=== PATIENT | male | born 1985 | race Caucasian/White ===

== ENCOUNTER 2023-01-22 20:22 | Emergency (ER) | payer BC ==
[~2023-01-22] VITALS: Ht 160 cm; Wt 95.3 kg
--- NOTE | 2023-01-22 20:30 | NUR ---
ARRIVAL PT ARRIVED TO ED ROOM 5 AMBULATORY C/O PAIN TO RIGHT KNEE X 1 DAY, STATES HE HEARD A POP WHILE WALKING PAIN PROGRESSIVLY WORSE TODAYTO LATERAL KNEE. MONITORS APPLIED, DR. BARAJAS NOTIFIED.
[2023-01-22] MEDS ORDERED: TORADOL IM STA (20:43)
[2023-01-22 20:46] VITALS: BP 164/88; PULSE 85; RESP 18; TEMP 98.1; O2SAT 98
[2023-01-22] MEDS ORDERED: TORADOL ONE (20:52)
[2023-01-22 21:17] VITALS: BP 143/93; PULSE 92; RESP 18; TEMP 98.1; O2SAT 98
--- NOTE | 2023-01-22 21:18 | DIREP ---
PROCEDURE:XRAY KNEE 2 VWS-RT COMPARISON:[facility], CR, XRAY KNEE 3 VIEWS-RT, 07/25/2016, 04:04 AM. INDICATIONS:Injury FINDINGS: No acute fracture or dislocation. Mild marginal osteophyte formation with joint space narrowing of the medial compartment. Small joint effusion. CONCLUSION: 1. No acute osseous abnormality. 2. Mild degenerative change and small joint effusion. 3. Recommend further evaluation with outpatient MRI if there is concern for internal derangement. Dictated by: Abhijit Gurrola DO on 01/22/2023 at 09:15 PM
--- NOTE | 2023-01-22 21:34 | ER.PDOC ---
General Chief Complaint: Requesting Medical Care Stated Complaint: KNEE PAIN Time seen by MD: 21:32 Source: patient Exam Limitations: no limitations History of Present Illness Initial Comments Right knee pain after twisting it 3 days ago. Pain is worse with movement. Where: home Context: twist Severity: moderate Past Medical History Medical History: no pertinent history Surgical History: appendectomy, cholecystectomy, knee Family History Significant Family History: no pertinent family hx Social History Smoking: non-smoker Alcohol Use: none Drug Use: none Review of Systems Constitutional: no symptoms reported EENTM: no symptoms reported Respiratory: no symptoms reported Cardiovascular: no symptoms reported Gastrointestinal: no symptoms reported Musculoskeletal: see HPI All Other Systems: Reviewed and Negative Physical Exam General Appearance: Alert, No Apparent Distress Foot: nml inspection, non-tender, nml color/temp, skin intact Ankle: nml inspection, non-tender, nml ROM, no joint swelling, skin intact Knee: tenderness (Right knee without swelling or deformity) Thigh/Hip: nml inspection Gait: normal Neuro/Vasc/Tendon: sensation nml, motor nml, no vascular compromise, tendon fun ction nml Skin: warm/dry Head/ENT: nml inspection, pharynx nml Neck/Back: nml inspection, non-tender Abdomen: non-tender, pelvis stable Results/Orders Results/Orders Orders - MIRA BARAJAS MD Xr Knee Rt 2v (01/22/23 20:43) Ketorolac Tromethamine (Toradol) (01/22/23 20:43) Ketorolac Tromethamine (Toradol) (01/22/23 20:52) Vital Signs Date Time Temp Pulse Resp B/P (MAP) Pulse Ox O2 Delivery O2 Flow Rate FiO2 01/22/23 21:17 98.1 92 18 143/93 (110) 98 Room Air* 0 21 01/22/23 20:46 98.1 85 18 01/22/23 20:46 98.1 85 18 98 01/22/23 20:46 98.1 85 18 164/88 (113) 98 Room Air* 0 21 Administered Medications Medications (Trade) Dose Ordered Sig/Demetri Route PRN Reason Start Time Stop Time Status Last Admin Dose Admin Ketorolac Tromethamine (Toradol) 60 mg STAT STAT IM 01/22/23 20:43 01/22/23 20:45 DC 01/22/23 20:51 60 MG Progress Progress X ray of right knee show no acute abnormality. I discussed findings with patient who voices understanding. ER DEPART Departure Time of Disposition: 21:33 Disposition: 01 HOME / SELF CARE / HOMELESS Impression: Primary Impression: Right knee injury Condition: Improved Referrals: ALEJANDRO MELISSA PA-C (PCP) PRIMARY CARE PROVIDER Additional Instructions: Continue with your knee brace Ibuprofen Follow-up with your PCP 1 week Return to ED if worsening or concerns Duration or Time Spent with Pa: 10 min Problem Qualifiers Primary Impression: Right knee injury Encounter type: initial encounter Qualified Codes: S89.91XA - Unspecified injury of right lower leg, initial encounter MIRA BARAJAS MD Jan 22, 2023 21:34
== END 2023-01-22 21:38 | disposition home or self-care (01) ==
LOC: ER 20:22
DX: S89.91XA Unspecified injury of right lower leg, initial encounter (principal); Z90.49 Acquired absence of other specified parts of digestive tract; X58.XXXA Exposure to other specified factors, initial encounter; Y93.89 Activity, other specified; Y92.89 Other specified places as the place of occurrence of the external cause; Y99.8 Other external cause status
CPT/HCPCS: 99284; 96372; 73560; J1885

== ENCOUNTER 2023-06-19 06:49 | Emergency (ER) | payer SELFPAY ==
[~2023-06-19] VITALS: Ht 160 cm; Wt 90.7 kg
[2023-06-19 07:06] VITALS: BP 136/84; PULSE 113; RESP 20; TEMP 97.9; O2SAT 93
[2023-06-19 07:55] LABS: BASOPHIL # 0.1 10^3/uL (0.0-0.1); BASOPHIL % 0.3 % (0.0-0.2); EOSINOPHIL # 0.4 10^3/uL (0.0-0.2); EOSINOPHIL % 2.4 % (0.0-5.0); HEMATOCRIT(ML) 46.3 % (37.0-53.0); HEMOGLOBIN 15.8 g/dL (13.9-16.3); IG % 0.6 % (0.00-0.50); LYMPHOCYTES # 3.32 10^3/uL1 (1.0-4.8); LYMPHOCYTES % 18.8 % (24.0-44.0); MEAN CORP HGB 32.1 pg (26-34); MEAN CORP HGB CONCENTRATION 34.1 g/dL (33-36.5); MEAN CORP VOLUME 94.1 fL (78-100); MONOCYTES # 0.8 10^3/uL (0.3-0.8); MONOCYTES % 4.5 % (5.0-12.0); NEUTROPHIL # 12.9 10^3/uL (1.8-7.7); NEUTROPHILS % 73.4 % (41.0-85.0); RED BLOOD CELL 4.92 10^6/uL (4.50-5.90); RED CELL DISTRIBUTION WIDTH 12.6 % (11.5-14.5); WHITE BLOOD CELL 17.6 10^3/uL (4.5-11.0)
[2023-06-19 07:56] LABS: BILIRUBIN,URINE NEGATIVE (NEGATIVE); LEUKOCYTE ESTERASE ,URINE NEGATIVE (NEGATIVE); NITRATE,URINE NEGATIVE (NEGATIVE); PH,URINE 6.5 (4.5-8.0)
[2023-06-19 08:09] VITALS: BP 112/81; PULSE 113; RESP 18; O2SAT 93
[2023-06-19 08:09] LABS: ALBUMIN/GLOBULIN RATIO 1.333; ANION GAP 13.5; BUN/CREATININE RATIO 9.14 (10.0-20.0); CALCIUM 9.1 mg/dL (8.4-10.5); CARBON DIOXIDE 29.5 mmol/L (20.0-32); CREATININE SERUM 1.64 mg/dL (0.59-1.40); EST GFR, NON-AA 46.8 (>/=60)
[2023-06-19 08:15] LABS: APPEARANCE,URINE CLEAR; UA COLOR YELLOW
[2023-06-19] MEDS ORDERED: NS 1000ML 1,000 ML IV STA (08:22)
[2023-06-19] MEDS ORDERED: NS 1000ML 1,000 ML ONE (08:27)
[2023-06-19] MEDS ORDERED: ROCEPHIN 1,000 MG in NS 100ML 100 ML IV STA (08:52)
[2023-06-19] MEDS ORDERED: ROCEPHIN ONE (08:54)
[2023-06-19] MEDS ORDERED: NS 50ML 50 ML IV ONE (08:54)
[2023-06-19 09:00] VITALS: BP 106/60; PULSE 90; RESP 18; O2SAT 96
== END 2023-06-19 09:38 | disposition home or self-care (01) ==
LOC: ER 06:49
DX: R10.9 Unspecified abdominal pain (principal); R11.2 Nausea with vomiting, unspecified; N17.9 Acute kidney failure, unspecified; N30.90 Cystitis, unspecified without hematuria; K76.0 Fatty (change of) liver, not elsewhere classified; E86.0 Dehydration; Z90.49 Acquired absence of other specified parts of digestive tract
CPT/HCPCS: 99285; 74176; 96365; 87086; 80053; 85025; 36415; 87040 ×2; 83605; 81001; 83690; J7030; J0696 ×2

== ENCOUNTER 2024-01-10 10:55 | Emergency (ER) | payer SELFPAY ==
[~2024-01-10] VITALS: Ht 160 cm; Wt 104.3 kg
[2024-01-10 11:08] VITALS: BP_SYST 143; BP_SYST 146; BP_DIAS 106; PULSE 95; RESP 18; TEMP 98.5; O2SAT 98
[2024-01-10] MEDS ORDERED: NS 1000ML 1,000 ML ONE (11:20)
[2024-01-10] MEDS: NS 1000ML 1,000 ML IV ONE (11:24)
[2024-01-10 11:32] LABS: BASOPHIL # 0.1 10^3/uL (0.0-0.1); BASOPHIL % 0.3 % (0.0-0.2); EOSINOPHIL # 0.4 10^3/uL (0.0-0.2); EOSINOPHIL % 2.2 % (0.0-5.0); HEMATOCRIT(ML) 37.6 % (37.0-53.0); HEMOGLOBIN 12.5 g/dL (13.9-16.3); LYMPHOCYTES # 2.85 10^3/uL1 (1.0-4.8); MEAN CORP HGB 31.3 pg (26-34); MEAN CORP HGB CONCENTRATION 33.2 g/dL (33-36.5); MONOCYTES # 1.1 10^3/uL (0.3-0.8); MONOCYTES % 6.1 % (5.0-12.0); NEUTROPHIL # 11.1 10^3/uL (1.8-7.7); NEUTROPHILS % 62.4 % (41.0-85.0); PLATELET COUNT 219 10^3/uL (150-400); RED CELL DISTRIBUTION WIDTH 12.2 % (11.5-14.5); WHITE BLOOD CELL 17.8 10^3/uL (4.5-11.0)
[2024-01-10 11:34] LABS: +ADD MANUAL DIFF(NO CHRG) YES
[2024-01-10 11:34] LABS: BILIRUBIN,URINE NEGATIVE (NEGATIVE); LEUKOCYTE ESTERASE ,URINE NEGATIVE (NEGATIVE); NITRATE,URINE NEGATIVE (NEGATIVE); UROBILINOGEN,URINE 0.2 E.U./dL (0.2)
[2024-01-10 11:36] LABS: APPEARANCE,URINE CLEAR; UA COLOR YELLOW
[2024-01-10 11:46] LABS: ALBUMIN(ML) 3.6 g/dL (3.4-5.0); ALBUMIN/GLOBULIN RATIO 1.285; ANION GAP 16.3; BUN/CREATININE RATIO 13.53 (10.0-20.0); CALCIUM 8.3 mg/dL (8.4-10.5); CARBON DIOXIDE 25.8 mmol/L (20.0-32); CREATININE SERUM 2.29 mg/dL (0.59-1.40); EST GFR, NON-AA 31.8 (>/=60); POTASSIUM 3.1 mmol/L (3.6-5.2); URIC ACID 13.2 mg/dL (3.5-7.2)
[2024-01-10 12:10] VITALS: BP 133/85; PULSE 84; RESP 18; O2SAT 96
[2024-01-10 13:33] LABS: BAND NEUTROPHILS 36 % (2-6); BASOPHIL 1 % (0-2); EOSINOPHIL 3 % (1-4); LYMPHOCYTE 16 % (25-36); MONOCYTE 3 % (3-9); MYELOCYTES 3 %; SEGMENTED NEUTROPHILS 34 % (31-76); TOTAL CELLS COUNTED 100 #CELLS
== END 2024-01-10 12:25 | disposition short-term general hospital (02) ==
LOC: ER 10:55
DX: N17.9 Acute kidney failure, unspecified (principal); N18.9 Chronic kidney disease, unspecified; D72.829 Elevated white blood cell count, unspecified; Z90.49 Acquired absence of other specified parts of digestive tract
CPT/HCPCS: 99291; 96360; 71045; 80053; 85025; 36415; 81001; 84550; 85651; 86140; 81003; J7030

== ENCOUNTER 2024-02-07 14:12 | Observation (INO) | payer OTHER ==
[~2024-02-07] VITALS: Ht 160 cm; Wt 104.8 kg
[2024-02-07 14:25] VITALS: BP 150/101; PULSE 91; RESP 18; TEMP 97.6; O2SAT 92
[2024-02-07] MEDS: NITROSTAT SL PRN (14:35)
[2024-02-07 14:39] LABS: BASOPHIL % 0.3 % (0.2-1.2); EOSINOPHIL # 0.5 10^3/uL (0.0-0.2); EOSINOPHIL % 3.8 % (0.0-5.0); HEMATOCRIT(ML) 40.2 % (37.0-53.0); HEMOGLOBIN 13.1 g/dL (13.9-16.3); LYMPHOCYTES # 2.61 10^3/uL1 (1.0-4.8); MEAN CORP HGB 31.1 pg (26-34); MEAN CORP HGB CONCENTRATION 32.6 g/dL (33-36.5); MEAN CORP VOLUME 95.5 fL (78-100); MONOCYTES # 0.8 10^3/uL (0.3-0.8); MONOCYTES % 6.1 % (5.0-12.0); NEUTROPHIL # 9.7 10^3/uL (1.8-7.7); NEUTROPHILS % 70.4 % (41.0-85.0); PLATELET COUNT 285 10^3/uL (150-400); RED BLOOD CELL 4.21 10^6/uL (4.50-5.90); RED CELL DISTRIBUTION WIDTH 13.1 % (11.5-14.5); WHITE BLOOD CELL 13.7 10^3/uL (4.5-11.0)
[2024-02-07 14:41] LABS: +ADD MANUAL DIFF(NO CHRG) NO
[2024-02-07 15:07] LABS: ALBUMIN(ML) 4.5 g/dL (3.4-5.0); ALBUMIN/GLOBULIN RATIO 1.5; ANION GAP 11.5; BUN/CREATININE RATIO 6.79 (10.0-20.0); CALCIUM 9.3 mg/dL (8.4-10.5); CARBON DIOXIDE 32.5 mmol/L (20.0-32); CREATININE SERUM 1.62 mg/dL (0.59-1.40); EST GFR, NON-AA 47.4 (>/=60)
[2024-02-07 15:13] VITALS: BP 138/84; PULSE 79; RESP 18; O2SAT 91
[2024-02-07 16:00] VITALS: BP_SYST 137; BP_SYST 140; BP_DIAS 88; BP_DIAS 91; PULSE 77; PULSE 89; RESP 18; TEMP 98; O2SAT 92; O2SAT 94
[2024-02-07] MEDS ORDERED: ZOFRAN IV PRN (16:30)
[2024-02-07] MEDS ORDERED: ULTRAM PO PRN (16:30)
[2024-02-07] MEDS ORDERED: MORPHINE SULFATE IV PRN (16:30)
[2024-02-07] MEDS ORDERED: OFIRMEV 1000 MG/100 ML IV PRN (16:30)
[2024-02-07] MEDS ORDERED: APRESOLINE IV PRN (16:30)
[2024-02-07] MEDS ORDERED: LOVENOX SQ ONE (16:55)
[2024-02-07] MEDS ORDERED: NS 1000ML 1,000 ML ONE (16:55)
[2024-02-07] MEDS: NS 1000ML 1,000 ML IV SCH (16:56)
[2024-02-07] MEDS: LOVENOX SQ SCH (16:57)
[2024-02-07 20:00] VITALS: BP 139/77; PULSE 89; RESP 18; TEMP 97.1; O2SAT 90
[2024-02-07] MEDS ORDERED: KLOR-CON 10 PO ONE (21:08)
[2024-02-07] MEDS: NS 1000ML/KCL 20MEQ 1,000 ML IV SCH (21:10)
[2024-02-07] MEDS: KLOR-CON 10 PO ONE (21:10)
[2024-02-08] VITALS: BP 125/80; PULSE 71; RESP 18; TEMP 97.9; O2SAT 90
[2024-02-08 04:00] VITALS: BP 122/78; PULSE 82; RESP 20; TEMP 98.1; O2SAT 97
[2024-02-08 05:48] LABS: BASOPHIL # 0.1 10^3/uL (0.0-0.1); BASOPHIL % 0.5 % (0.2-1.2); EOSINOPHIL # 0.4 10^3/uL (0.0-0.2); EOSINOPHIL % 3.8 % (0.0-5.0); HEMATOCRIT(ML) 36.1 % (37.0-53.0); HEMOGLOBIN 11.6 g/dL (13.9-16.3); LYMPHOCYTES # 2.29 10^3/uL1 (1.0-4.8); LYMPHOCYTES % 21.4 % (24.0-44.0); MEAN CORP HGB 31.4 pg (26-34); MEAN CORP HGB CONCENTRATION 32.1 g/dL (33-36.5); MEAN CORP VOLUME 97.6 fL (78-100); MONOCYTES # 0.6 10^3/uL (0.3-0.8); MONOCYTES % 5.6 % (5.0-12.0); NEUTROPHIL # 7.3 10^3/uL (1.8-7.7); NEUTROPHILS % 68.1 % (41.0-85.0); PLATELET COUNT 244 10^3/uL (150-400); RED CELL DISTRIBUTION WIDTH 13.2 % (11.5-14.5); WHITE BLOOD CELL 10.7 10^3/uL (4.5-11.0)
[2024-02-08 05:49] LABS: +ADD MANUAL DIFF(NO CHRG) NO
[2024-02-08 06:05] LABS: ALBUMIN(ML) 3.7 g/dL (3.4-5.0); ALBUMIN/GLOBULIN RATIO 1.37; ANION GAP 12.6; BUN/CREATININE RATIO 7.14 (10.0-20.0); CALCIUM 8.6 mg/dL (8.4-10.5); CREATININE SERUM 1.54 mg/dL (0.59-1.40); EST GFR, NON-AA 50.3 (>/=60); POTASSIUM 3.6 mmol/L (3.6-5.2)
[2024-02-08 07:34] VITALS: BP 129/91; PULSE 79; RESP 18; TEMP 97.7; O2SAT 93
[2024-02-08] MEDS: COZAAR PO SCH (08:28)
[2024-02-08] MEDS: PROTONIX IV IV SCH (08:28)
[2024-02-08] MEDS: NITROSTAT SL PRN (08:53)
[2024-02-08] MEDS: HEPARIN SQ SCH (09:00)
[2024-02-08 10:58] VITALS: BP 129/91; PULSE 79; RESP 18; TEMP 97.7; O2SAT 93
== END 2024-02-08 10:58 | disposition home or self-care (01) ==
LOC: ER 14:12 → MS 15:22
PROVIDERS: ADMIT Student in an Organized Health Care Education/Training Program; ATTEND Student in an Organized Health Care Education/Training Program
DX: R07.89 Other chest pain (principal); I16.0 Hypertensive urgency; I12.9 Hypertensive chronic kidney disease with stage 1 through stage 4 chronic kidney disease, or unspecified chronic kidney disease; N18.31 Chronic kidney disease, stage 3a; N17.9 Acute kidney failure, unspecified; I45.10 Unspecified right bundle-branch block; E03.9 Hypothyroidism, unspecified; E86.0 Dehydration; K76.0 Fatty (change of) liver, not elsewhere classified; Z90.49 Acquired absence of other specified parts of digestive tract; Z79.899 Other long term (current) drug therapy
CPT/HCPCS: 96372; 96365; 96366 ×2; 96361; 99285; 71045; 80053 ×2; 85025 ×2; 36415 ×2; 85379; 84484 ×3; 82553; 83880; 82550 ×2; 93005; 96375; 83735; G0378 ×20; J7030; J3490 ×2; J1650; J2470; 80307; C9113

== ENCOUNTER 2024-05-07 20:00 | Observation (INO) | payer OTHER ==
[~2024-05-07] VITALS: Ht 160 cm; Wt 104.3 kg
[2024-05-07] MEDS ORDERED: ASPIRIN ONE (20:06)
[2024-05-07] MEDS: ASPIRIN PO STA (20:08)
[2024-05-07 20:12] LABS: BASOPHIL # 0.1 10^3/uL (0.0-0.1); BASOPHIL % 0.7 % (0.2-1.2); EOSINOPHIL % 8.3 % (0.0-5.0); HEMATOCRIT(ML) 42.7 % (37.0-53.0); HEMOGLOBIN 14.2 g/dL (13.9-16.3); LYMPHOCYTES # 2.69 10^3/uL1 (1.0-4.8); LYMPHOCYTES % 21.9 % (24.0-44.0); MEAN CORP HGB 29.9 pg (26-34); MEAN CORP HGB CONCENTRATION 33.3 g/dL (33-36.5); MEAN CORP VOLUME 89.9 fL (78-100); MONOCYTES # 0.9 10^3/uL (0.3-0.8); MONOCYTES % 7.4 % (5.0-12.0); NEUTROPHIL # 7.6 10^3/uL (1.8-7.7); NEUTROPHILS % 61.4 % (41.0-85.0); PLATELET COUNT 300 10^3/uL (150-400); RED BLOOD CELL 4.75 10^6/uL (4.50-5.90); RED CELL DISTRIBUTION WIDTH 12.6 % (11.5-14.5); WHITE BLOOD CELL 12.3 10^3/uL (4.5-11.0)
[2024-05-07 20:14] VITALS: BP 153/107; PULSE 98; RESP 20; TEMP 98; O2SAT 95
[2024-05-07] MEDS: NITROSTAT SL STA ×2 (20:17→20:23)
[2024-05-07 20:26] VITALS: BP 124/66; PULSE 102; RESP 20; TEMP 98; O2SAT 95
[2024-05-07 20:30] LABS: +ADD MANUAL DIFF(NO CHRG) NO
[2024-05-07 20:33] LABS: INR 0.9; PROTHROMBIN PROTIME 9.9 SEC (9.7-11.6)
[2024-05-07 20:36] LABS: TROPONIN I HIGH SENSITIVITY 6 ng/L (0-75)
[2024-05-07 20:41] LABS: ALANINE AMINOTRANSFERASE(ML) 55 U/L (12-78); ALBUMIN/GLOBULIN RATIO 1.081; ALKALINE PHOSPHATASE 172 U/L (50-136); ANION GAP 13.3; ASPARTATE AMINO TRANSFERASE 29 U/L (0-35); CARBON DIOXIDE 29.4 mmol/L (20.0-32); CREATINE KINASE 205 U/L (39-308); CREATININE SERUM 1.62 mg/dL (0.59-1.40); EST GFR, NON-AA 47.2 (>/=60); GLUCOSE 103 mg/dL (74-106); POTASSIUM 3.7 mmol/L (3.6-5.2); SODIUM 139 mmol/L (132-145)
[2024-05-07 20:42] LABS: CREATINE KINASE MB < 0.5 ng/mL (0.5-3.6)
[2024-05-07 21:06] VITALS: BP 135/75; PULSE 91; RESP 20; TEMP 98; O2SAT 95
[2024-05-07] MEDS ORDERED: MORPHINE SULFATE IV PRN ×2 (21:30)
[2024-05-07] MEDS ORDERED: TYLENOL PO PRN (21:30)
[2024-05-07] MEDS ORDERED: NICOTINE 21 MGPATCH TD PRN (21:30)
[2024-05-07] MEDS ORDERED: APRESOLINE IV PRN (21:30)
[2024-05-07] MEDS ORDERED: ZOFRAN IV PRN (21:30)
[2024-05-07] MEDS ORDERED: DUONEB 0.5-3(2.5) MG/3 ML IH PRN (21:30)
[2024-05-07] MEDS ORDERED: NITROSTAT SL PRN (21:30)
[2024-05-07 21:40] VITALS: BP 147/78; PULSE 89; RESP 20; TEMP 98; O2SAT 95
[2024-05-07 22:00] VITALS: BP 118/83; PULSE 91; RESP 20; TEMP 98.2; O2SAT 95
[2024-05-07] MEDS: HEPARIN SQ SCH (23:27)
[2024-05-07 23:50] VITALS: BP 103/69; PULSE 76; RESP 18; TEMP 98.1; O2SAT 95
[2024-05-08 04:09] VITALS: BP 116/75; PULSE 80; RESP 18; TEMP 97.3; O2SAT 96
[2024-05-08 06:17] LABS: HEMATOCRIT(ML) 39.1 % (37.0-53.0); HEMOGLOBIN 12.7 g/dL (13.9-16.3); MEAN CORP HGB 29.7 pg (26-34); MEAN CORP HGB CONCENTRATION 32.5 g/dL (33-36.5); MEAN CORP VOLUME 91.6 fL (78-100); RED BLOOD CELL 4.27 10^6/uL (4.50-5.90); RED CELL DISTRIBUTION WIDTH 12.6 % (11.5-14.5); WHITE BLOOD CELL 10.6 10^3/uL (4.5-11.0)
[2024-05-08 06:21] LABS: ANION GAP 11.2; BUN/CREATININE RATIO 10.29 (10.0-20.0); CARBON DIOXIDE 29.6 mmol/L (20.0-32); CREATININE SERUM 1.36 mg/dL (0.59-1.40); EST GFR, NON-AA 57.7 (>/=60); POTASSIUM 3.8 mmol/L (3.6-5.2)
[2024-05-08 08:08] VITALS: BP 113/75; PULSE 79; RESP 20; TEMP 98.6; O2SAT 91
[2024-05-08] MEDS: HUMULIN R SQ SCH (09:55)
[2024-05-08] MEDS: PROTONIX IV IV SCH (09:56)
[2024-05-08] MEDS ORDERED: MORPHINE SULFATE IV PRN (10:00)
[2024-05-08 11:59] VITALS: BP 127/88; PULSE 83; RESP 20; TEMP 98; O2SAT 91
[2024-05-08 12:48] VITALS: RESP 16; O2SAT 90
[2024-05-08] MEDS ORDERED: NITR0.4T SL (13:23)
[2024-05-08 14:55] VITALS: BP 127/88; PULSE 83; RESP 16; TEMP 98; O2SAT 90
== END 2024-05-08 14:55 | disposition home or self-care (01) ==
LOC: ER 20:00 → OBS 21:17 → EDBEDREQSVC 21:21
PROVIDERS: ADMIT Student in an Organized Health Care Education/Training Program; ATTEND Student in an Organized Health Care Education/Training Program
DX: R07.89 Other chest pain (principal); R06.02 Shortness of breath; I12.9 Hypertensive chronic kidney disease with stage 1 through stage 4 chronic kidney disease, or unspecified chronic kidney disease; N18.30 Chronic kidney disease, stage 3 unspecified; E07.9 Disorder of thyroid, unspecified; N17.9 Acute kidney failure, unspecified; K76.0 Fatty (change of) liver, not elsewhere classified; E86.0 Dehydration; I16.0 Hypertensive urgency; M79.602 Pain in left arm; Z90.49 Acquired absence of other specified parts of digestive tract; Z79.899 Other long term (current) drug therapy
CPT/HCPCS: 96372 ×2; 99285; 71045; 80053; 85025; 36415 ×2; 85379; 84484 ×3; 82553; 83880; 82550; 85610; 85730; 93005; 96374; 85027; 82948 ×2; 80048; G0378 ×18; J8499; J1644 ×2; C9113